=== PATIENT | male | born 1945 | race American Indian/Alaskan Native ===

== ENCOUNTER 2017-08-02 14:49 | Emergency (ER) | payer MEDICARE ==
[2017-08-02 15:05] VITALS: BP 145/73
--- NOTE | 2017-08-02 18:12 | Emergency Department Report ---
Joslyn Doc - Documentation Documentation: Patient is 71-year-old year-old -English male who is presenting with dry skin on his scalp. Patient's daughter states that he does have a history of renal failure and she was told that on his last visit where he was admitted several months ago that his he was admitted with a stage IV kidney disease when he left it was a stage II was told about a uremic muhammad to be aware of. The patient's daughter was worried that his renal functions got worse. The patient states that yesterday he did have an episode where he was very weak and fatigued and his nurse's aid states stated that he was briefly poorly responsive. By time EMS got to the house yesterday his vital signs were normal he felt better and did not want to go to the hospital. As far as the patient's rash does appear just to be dry skin however with the poorly responsive episode this patient had yesterday we will check his kidney function Mr. the patient was not anemic now rule out an emergent condition.
[2017-08-02 18:42] LABS: Basophils # (Auto) 0.1 K/mm3 (0.0-0.1); Basophils % (Auto) 0.6 % (0.0-1.8); Eosinophils # (Auto) 0.3 K/mm3 (0.0-0.4); Eosinophils % (Auto) 3.9 % (0.0-4.3); Hematocrit 34.2 % (35.5-45.6); Hemoglobin 11.6 gm/dl (11.8-15.2); Lymphocytes # (Auto) 2.2 K/mm3 (1.2-5.4); Lymphocytes % (Auto) 26.5 % (13.4-35.0); Mean Corpuscular HGB Conc 34 % (32-34); Mean Corpuscular Hemoglobin 30 pg (28-32); Mean Corpuscular Volume 88 fl (84-94); Monocytes # (Auto) 0.5 K/mm3 (0.0-0.8); Monocytes % (Auto) 6.5 % (0.0-7.3); Platelet Count 192 K/mm3 (140-440); Red Blood Count 3.91 M/mm3 (3.65-5.03)
[2017-08-02 18:46] LABS: Calcium 9.1 mg/dL (8.4-10.2)
--- NOTE | 2017-08-02 19:24 | Emergency Department Report ---
- General Chief complaint: Skin Rash Stated complaint: RASH Time Seen by Provider: 08/02/17 17:52 Source: patient Mode of arrival: Ambulatory Limitations: No Limitations - History of Present Illness Initial comments: 71M PMH CKD presents with complaint of dry scaly skin and scalp. Patient denies fevers chills nausea vomiting chest pain palpitation shortness of breath. Patient is awake alert and oriented 3 and accompanied by his daughter at bedside. Patient was evaluated by Dr. Long earlier. Patient is complaining of itchy scaly skin and scalp. Denies any other complaints at this time. Has been ongoing for several days. MD complaint: rash Onset/Timin -: week(s) Improves with: none Worsens with: none Context: none Associated symptoms: denies other symptoms Treatments Prior to Arrival: none - Related Data Previous Rx's Medication Instructions Recorded Last Taken Type Hydrocortisone 1% [Hydrocortisone 1 applicatio TP TID PRN #1 tube 08/02/17 Unknown Rx 1% CREAM] Mineral Oil/Hydrophil Petrolat 1 applicatio TP TID #1 oint...g. 08/02/17 Unknown Rx [Aquaphor Healing Ointment] Allergies Allergy/AdvReac Type Severity Reaction Status Date / Time No Known Allergies Allergy Unverified 08/02/17 15:00 Abscess Boil HPI - HPI Chief Complaint: Skin Rash Stated Complaint: RASH Time Seen by Provider: 08/02/17 17:52 Home Medications: Previous Rx's Medication Instructions Recorded Last Taken Type Hydrocortisone 1% [Hydrocortisone 1 applicatio TP TID PRN #1 tube 08/02/17 Unknown Rx 1% CREAM] Mineral Oil/Hydrophil Petrolat 1 applicatio TP TID #1 oint...g. 08/02/17 Unknown Rx [Aquaphor Healing Ointment] Allergies/Adverse Reactions: Allergies Allergy/AdvReac Type Severity Reaction Status Date / Time No Known Allergies Allergy Unverified 08/02/17 15:00 ED Review of Systems ROS: Stated complaint: RASH Other details as noted in HPI Constitutional: denies: chills, fever Eyes: denies: eye pain, eye discharge, vision change ENT: denies: ear pain, throat pain Respiratory: denies: cough, shortness of breath, wheezing Cardiovascular: denies: chest pain, palpitations Endocrine: no symptoms reported Gastrointestinal: denies: abdominal pain, nausea, diarrhea Genitourinary: denies: urgency, dysuria Musculoskeletal: denies: back pain, joint swelling, arthralgia Skin: rash, pruritus. denies: lesions Neurological: denies: headache, weakness, paresthesias Psychiatric: denies: anxiety, depression Hematological/Lymphatic: denies: easy bleeding, easy bruising ED Past Medical Hx - Past Medical History Previous Medical History?: No Hx Diabetes: Yes Additional medical history: KIDNEY ISSUES - Surgical History Additional Surgical History: PROSTRATE SURGERY - Social History Smoking Status: Former Smoker Substance Use Type: None - Medications Home Medications: Home Medications Medication Instructions Recorded Confirmed Last Taken Type Hydrocortisone 1% [Hydrocortisone 1 applicatio TP TID PRN #1 tube 08/02/17 Unknown Rx 1% CREAM] Mineral Oil/Hydrophil Petrolat 1 applicatio TP TID #1 oint...g. 08/02/17 Unknown Rx [Aquaphor Healing Ointment] ED Physical Exam - General Limitations: No Limitations General appearance: alert, in no apparent distress - Head Head exam: Present: atraumatic, normocephalic - Eye Eye exam: Present: normal appearance, PERRL, EOMI - ENT ENT exam: Present: mucous membranes moist - Neck Neck exam: Present: normal inspection - Respiratory Respiratory exam: Present: normal lung sounds bilaterally. Absent: respiratory distress - Cardiovascular Cardiovascular Exam: Present: regular rate, normal rhythm. Absent: systolic murmur, diastolic murmur, rubs, gallop - GI/Abdominal GI/Abdominal exam: Present: soft, normal bowel sounds - Rectal Rectal exam: Present: deferred - Extremities Exam Extremities exam: Present: normal inspection - Back Exam Back exam: Present: normal inspection - Neurological Exam Neurological exam: Present: alert, oriented X3, CN II-XII intact, normal gait - Psychiatric Psychiatric exam: Present: normal affect, normal mood - Skin Skin exam: Present: warm, dry, intact, normal color, rash (dry scaly skin on scalp) ED Course Vital Signs 08/02/17 15:00 Temperature 98.3 F Pulse Rate 87 Respiratory 18 Rate Blood Pressure 145/73 O2 Sat by Pulse 97 Oximetry ED Medical Decision Making - Lab Data Result diagrams: 08/02/17 18:14 08/02/17 18:14 - Medical Decision Making A/P: Scalp dermatitis 1-topical hydrocortisone, Aquaphor 2-reviewed labs with Dr. Long. Creatinine 1.6, unremarkable. I advised patient to remain well-hydrated 3-patient's daughter at bedside and states that he has a primary care physician with [facility]. I also provided patient with primary care information as he is requesting outpatient follow up 4- case discussed with Dr. Long before discharge Critical care attestation.: If time is entered above; I have spent that time in minutes in the direct care of this critically ill patient, excluding procedure time. ED Disposition Clinical Impression: Dry skin dermatitis Disposition: - TO HOME OR SELFCARE Is pt being admited?: No Does the pt Need Aspirin: No Condition: Stable Instructions: Dehydration (ED), Contact Dermatitis (ED), Itchy Skin (ED) Prescriptions: Hydrocortisone 1% [Hydrocortisone 1% CREAM] 1 applicatio TP TID PRN #1 tube PRN Reason: Dry Skin Mineral Oil/Hydrophil Petrolat [Aquaphor Healing Ointment] 1 applicatio TP TID # 1 oint...g. Referrals: [facility] [Outside] - 3-5 Days [facility] [Outside] - 3-5 Days ZANDRA SPENCE MD [Staff Physician] - 3-5 Days Forms: Accompanied Note Time of Disposition: 19:24
== END 2017-08-02 19:34 | disposition home or self-care (01) ==
LOC: ED 14:49
DX: L30.9 Dermatitis, unspecified (principal); E11.9 Type 2 diabetes mellitus without complications
CPT/HCPCS: 36415; 80048; 85025; 99283

== ENCOUNTER 2017-12-10 08:02 | Emergency (ER) | payer MEDICARE ==
[2017-12-10 10:16] LABS: Basophils # (Auto) 0.1 K/mm3 (0.0-0.1); Basophils % (Auto) 0.7 % (0.0-1.8); Eosinophils # (Auto) 0.3 K/mm3 (0.0-0.4); Eosinophils % (Auto) 4.3 % (0.0-4.3); Hematocrit 33.8 % (35.5-45.6); Hemoglobin 11.6 gm/dl (11.8-15.2); Lymphocytes # (Auto) 2.2 K/mm3 (1.2-5.4); Mean Corpuscular HGB Conc 34 % (32-34); Mean Corpuscular Hemoglobin 30 pg (28-32); Mean Corpuscular Volume 88 fl (84-94); Monocytes # (Auto) 0.5 K/mm3 (0.0-0.8); Platelet Count 193 K/mm3 (140-440); Red Blood Count 3.84 M/mm3 (3.65-5.03); Red Cell Distribution Width 14.1 % (13.2-15.2)
--- NOTE | 2017-12-10 10:29 | Emergency Department Report ---
ED General Adult HPI - General Chief complaint: Medical Clearance Stated complaint: POSITIVE TB Time Seen by Provider: 12/10/17 09:32 Source: patient, EMS Mode of arrival: Stretcher Limitations: No Limitations - History of Present Illness Initial comments: 72-year-old man that states he's been taking TB medication for one year. Apparently he had some paranoid ideation and was admitted to [facility]. He tells me that he has no psychiatric history at all. He does not recognize that he is in a psychiatric hospital. He states that he was not admitted to a hospital for treatment of TB. He denies cough, night sweats, weight loss, difficulty in breathing. He was sent here because for the last 2-3 days his TB medication was discontinued. According to the triage note the patient was sent for evaluation code due to the patient's daughter reporting recent TB diagnosis and patient hasn't been receiving medication at facility (3 days.". Diagnosis as [facility] is apparently paranoia and dementia. He is an insulin-dependent diabetic. Patient tells me that he did not know he was at a psychiatric hospital. -: year(s) - Related Data Previous Rx's Medication Instructions Recorded Last Taken Type Hydrocortisone 1% [Hydrocortisone 1 applicatio TP TID PRN #1 tube 08/02/17 Unknown Rx 1% CREAM] Mineral Oil/Hydrophil Petrolat 1 applicatio TP TID #1 oint...g. 08/02/17 Unknown Rx [Aquaphor Healing Ointment] Allergies Allergy/AdvReac Type Severity Reaction Status Date / Time No Known Allergies Allergy Verified 12/10/17 08:40 ED Review of Systems ROS: Stated complaint: POSITIVE TB Other details as noted in HPI Constitutional: denies: chills, fever Eyes: denies: eye pain, eye discharge, vision change ENT: denies: ear pain, throat pain Respiratory: denies: cough, shortness of breath, wheezing Cardiovascular: denies: chest pain, palpitations Endocrine: no symptoms reported Gastrointestinal: denies: abdominal pain, nausea, diarrhea Genitourinary: denies: urgency, dysuria Musculoskeletal: denies: back pain, joint swelling, arthralgia Skin: denies: rash, lesions Neurological: denies: headache, weakness, paresthesias Psychiatric: other (apparently some paranoid ideation). denies: anxiety, depression Hematological/Lymphatic: denies: easy bleeding, easy bruising ED Past Medical Hx - Past Medical History Previous Medical History?: Yes Hx Hypertension: Yes Hx Diabetes: Yes Hx Dementia: Yes Additional medical history: KIDNEY ISSUES - Surgical History Past Surgical History?: Yes Additional Surgical History: PROSTATE SURGERY - Social History Smoking Status: Never Smoker Substance Use Type: None - Medications Home Medications: Home Medications Medication Instructions Recorded Confirmed Last Taken Type Hydrocortisone 1% [Hydrocortisone 1 applicatio TP TID PRN #1 tube 08/02/17 Unknown Rx 1% CREAM] Mineral Oil/Hydrophil Petrolat 1 applicatio TP TID #1 oint...g. 08/02/17 Unknown Rx [Aquaphor Healing Ointment] ED Physical Exam - General Limitations: Other (dementia) General appearance: alert, in no apparent distress - Head Head exam: Present: atraumatic, normocephalic - Eye Eye exam: Present: normal appearance. Absent: scleral icterus - ENT ENT exam: Present: mucous membranes moist - Neck Neck exam: Present: normal inspection. Absent: tenderness, meningismus - Respiratory Respiratory exam: Present: normal lung sounds bilaterally. Absent: respiratory distress - Cardiovascular Cardiovascular Exam: Present: regular rate, normal rhythm. Absent: systolic murmur, diastolic murmur, rubs, gallop - GI/Abdominal GI/Abdominal exam: Present: soft, normal bowel sounds. Absent: distended, tenderness, guarding, rebound, rigid - Rectal Rectal exam: Present: deferred - Extremities Exam Extremities exam: Present: normal inspection - Back Exam Back exam: Present: normal inspection - Neurological Exam Neurological exam: Present: alert, oriented X3, CN II-XII intact. Absent: motor sensory deficit - Psychiatric Psychiatric exam: Present: normal affect, normal mood - Skin Skin exam: Present: warm, dry, intact, normal color. Absent: rash ED Course Vital Signs 12/10/17 08:26 Temperature 97.7 F Pulse Rate 64 Respiratory 18 Rate Blood Pressure 147/79 O2 Sat by Pulse 100 Oximetry ED Medical Decision Making - Lab Data Result diagrams: 12/10/17 09:54 12/10/17 09:54 Laboratory Results - last 24 hr 12/10/17 12/10/17 09:54 09:54 WBC 8.1 RBC 3.84 Hgb 11.6 L Hct 33.8 L MCV 88 MCH 30 MCHC 34 RDW 14.1 Plt Count 193 Lymph % (Auto) 27.0 [place] % (Auto) 6.0 Eos % (Auto) 4.3 Baso % (Auto) 0.7 Lymph # 2.2 [place]on # 0.5 Eos # 0.3 Baso # 0.1 Seg Neutrophils % 62.0 Seg Neutrophils # 5.0 Sodium 146 H Potassium 4.8 Chloride 108.5 H Carbon Dioxide 26 Anion Gap 16 BUN 23 H Creatinine 1.7 H Estimated GFR 48 BUN/Creatinine Ratio 14 Glucose 93 Calcium 9.3 Total Bilirubin 0.30 AST 19 ALT 18 Alkaline Phosphatase 77 Total Protein 6.6 Albumin 3.9 Albumin/Globulin Ratio 1.4 - Radiology Data Radiology results: report reviewed (process per radiologist. No reported pulmonary infiltrate or lesions.) Critical care attestation.: If time is entered above; I have spent that time in minutes in the direct care of this critically ill patient, excluding procedure time. ED Disposition Clinical Impression: Medical clearance for psychiatric admission, Renal insufficiency Disposition: DC-01 TO HOME OR SELFCARE Is pt being admited?: No Does the pt Need Aspirin: No Condition: Stable Instructions: Medical Clearance for Psychiatric Care (ED), Chronic Kidney Disease (ED) Additional Instructions: This patient has been found to have no evidence of active TB. He states that he was on medicine for 1 year for TB. He states that he has never been hospitalized for TB. The reliability of this information is unknown. He does not need respiratory isolation. It is probably unlikely that he requires further TB medication if he has even been prescribed this. One year is in excess of what would be recommended for prophylaxis anyway. This patient needs standard medical consultation in your facility. He is not found to have an emergency medical condition or indications for hospitalization. He does appear to have chronic renal insufficiency which is common and diabetes. His sodium was slightly high. I would recommend increased fluids and repeat of his basic metabolic profile. This should be done via your standard internal medicine backup physician. There are no acute indications for hospitalization. There are no acute indications for respiratory isolation. Referrals: PRIMARY CARE, [Primary Care Provider] - 3-5 Days usual, internal medicine senior information security consultant at [place] [Other] - 2-3 Days Time of Disposition: 10:39
[2017-12-10 10:31] LABS: Albumin 3.9 g/dL (3.9-5); Calcium 9.3 mg/dL (8.4-10.2)
--- NOTE | 2017-12-10 10:31 | XRay Report ---
FINAL REPORT EXAM: XRAY CHEST SINGLE VIEW HISTORY: TB TECHNIQUE: Frontal chest x-ray. PRIORS: None currently available. FINDINGS: Cardiac silhouette is within normal limits. There is no effusion. There is no pneumothorax. There is no consolidation. There is no x-ray evidence for active tuberculosis. There are no suspicious osseous lesions. Degenerative changes in both shoulders. IMPRESSION: No acute cardiopulmonary findings.
[2017-12-10 12:09] VITALS: BP 127/67
== END 2017-12-10 12:10 | disposition home or self-care (01) ==
LOC: ED 08:02
DX: I12.9 Hypertensive chronic kidney disease with stage 1 through stage 4 chronic kidney disease, or unspecified chronic kidney disease (principal); N18.9 Chronic kidney disease, unspecified; E11.22 Type 2 diabetes mellitus with diabetic chronic kidney disease; Z79.4 Long term (current) use of insulin; F03.90 Unspecified dementia, unspecified severity, without behavioral disturbance, psychotic disturbance, mood disturbance, and anxiety
CPT/HCPCS: 36415; 71045; 80053; 85025; 99284

== ENCOUNTER 2019-03-23 19:12 | Emergency (ER) | payer MEDICARE ==
--- NOTE | 2019-03-23 20:06 | Emergency Department Report ---
ED General Adult HPI - General Chief complaint: Medical Clearance Stated complaint: FLORENCIO EVDARI Time Seen by Provider: 03/23/19 19:48 Source: patient, EMS Mode of arrival: Ambulatory Limitations: No Limitations - History of Present Illness Initial comments: Patient is a 73-year-old male with a past medical history of diabetes and mild dementia who is presenting from [facility] secondary to a behavioral disturbance. Patient was noted by staff to be kicking a door and yelling. EMS was called and they states that the patient was calm during their assessment. The patient currently states he feels actually fine. He states he denies kicking or screaming. Patient states he is only at [facility] because of the 3 meals a day. Patient states his daughter just a relative at this seems that his living facility. Patient states he feels as though he was labeled as being crazy secondary to being -[place]. Patient denies homicidal suicidal ideations. Patient states the only voices he hears is "his own" - Related Data Previous Rx's Medication Instructions Recorded Last Taken Type Hydrocortisone 1% [Hydrocortisone 1 applicatio TP TID PRN #1 tube 08/02/17 Unknown Rx 1% CREAM] Mineral Oil/Hydrophil Petrolat 1 applicatio TP TID #1 oint...g. 08/02/17 Unknown Rx [Aquaphor Healing Ointment] Allergies Allergy/AdvReac Type Severity Reaction Status Date / Time No Known Allergies Allergy Verified 12/10/17 08:40 ED Review of Systems ROS: Stated complaint: MH EVAL Other details as noted in HPI Comment: All other systems reviewed and negative ED Past Medical Hx - Past Medical History Previous Medical History?: Yes Hx Hypertension: Yes Hx Diabetes: Yes Hx Dementia: Yes Additional medical history: KIDNEY ISSUES - Surgical History Past Surgical History?: Yes Additional Surgical History: PROSTATE SURGERY - Social History Smoking Status: Former Smoker Substance Use Type: None - Medications Home Medications: Home Medications Medication Instructions Recorded Confirmed Last Taken Type Hydrocortisone 1% [Hydrocortisone 1 applicatio TP TID PRN #1 tube 08/02/17 Unknown Rx 1% CREAM] Mineral Oil/Hydrophil Petrolat 1 applicatio TP TID #1 oint...g. 08/02/17 Unknown Rx [Aquaphor Healing Ointment] ED Physical Exam - General Limitations: No Limitations General appearance: alert, in no apparent distress - Head Head exam: Present: atraumatic, normocephalic - Eye Eye exam: Present: normal appearance, PERRL, EOMI - ENT ENT exam: Present: mucous membranes moist - Neck Neck exam: Present: normal inspection - Respiratory Respiratory exam: Present: normal lung sounds bilaterally. Absent: respiratory distress, wheezes, rales, rhonchi - Cardiovascular Cardiovascular Exam: Present: regular rate, normal rhythm, normal heart sounds. Absent: systolic murmur, diastolic murmur, rubs, gallop - GI/Abdominal GI/Abdominal exam: Present: soft, distended, tenderness, guarding, rebound, normal bowel sounds - Rectal Rectal exam: Present: deferred - Extremities Exam Extremities exam: Present: normal inspection - Back Exam Back exam: Present: normal inspection - Neurological Exam Neurological exam: Present: alert, oriented X3 - Psychiatric Psychiatric exam: Present: normal affect, normal mood - Skin Skin exam: Present: warm, dry, intact, normal color. Absent: rash ED Course - Reevaluation(s) Reevaluation #1: 03/23/19 20:05 Patient presents secondary to a behavioral disturbance at his [facility] facility which the patient adamantly denies. Patient is calm and cooperative her showing good insight at this time. Accu-Chek will be checked to rule out mild hypoglycemia since the patient does have a history of DM ED Medical Decision Making - Lab Data Lab Results 03/23/19 Range/Units 20:00 POC Glucose 143 H (70-105) - Medical Decision Making Patient is a 73-year-old gentleman with a history of dementia and diabetes who is presenting after a behavioral disturbance at his custodial facility. Patient is showing insight and denies homicidal suicidal ideations. The patient does not warrant acute psychiatric evaluation at this time. Patient does not have a medical emergency at this time. Patient Received outpatient therapy as needed. Critical care attestation.: If time is entered above; I have spent that time in minutes in the direct care of this critically ill patient, excluding procedure time. ED Disposition Clinical Impression: Behavior concern in adult Disposition: MED SCREENING EXAM-LEFT Is pt being admited?: No Does the pt Need Aspirin: No Condition: Stable Referrals: FABIANA MURRIETA MD [Staff Physician] - 3-5 Days Time of Disposition: 20:15
== END 2019-03-23 21:15 | disposition left against medical advice (07) ==
LOC: ED 19:12
DX: F91.9 Conduct disorder, unspecified (principal); I10 Essential (primary) hypertension; E11.9 Type 2 diabetes mellitus without complications; F03.90 Unspecified dementia, unspecified severity, without behavioral disturbance, psychotic disturbance, mood disturbance, and anxiety; Z87.891 Personal history of nicotine dependence; Z98.890 Other specified postprocedural states; Z79.899 Other long term (current) drug therapy
CPT/HCPCS: 82962